=== PATIENT | female | born 1995 | race Caucasian/White ===

== ENCOUNTER 2019-03-14 19:50 | Inpatient (IN) | payer MEDICAID ==
[~2019-03-14] VITALS: Ht 170.2 cm; Wt 78.0 kg
[2019-03-14] MEDS ORDERED: RITO100T PO (21:43)
[2019-03-14 22:18] LABS: BASOPHILS % (AUTO) 0.7 % (0.0-2.0); EOSINOPHILS % (AUTO) 0.6 % (1.0-6.0); HEMATOCRIT 39.3 % (36-46); HEMOGLOBIN 12.9 g/dL (12.0-16.0); LYMPHOCYTES # (AUTO) 2.8 K/uL (1.0-4.8); LYMPHOCYTES % (AUTO) 43.6 % (22.0-44.0); MEAN CORPUSCULAR HEMOGLOBIN 31.3 pg (26.0-34.0); MEAN CORPUSCULAR HGB CONC 32.9 G/dL (31.0-37.0); MEAN CORPUSCULAR VOLUME 95 fL (80-100); MONOCYTES # (AUTO) 0.6 K/uL (0.1-1.0); MONOCYTES % (AUTO) 8.9 % (2.0-9.0); NEUTROPHILS % (AUTO) 46.2 % (40.0-70.0); PLATELET COUNT (AUTO) 232 K/uL (150-450); RED BLOOD CELL COUNT(AUTO) 4.14 MIL/uL (4.00-5.20)
[2019-03-14 22:41] LABS: ANION GAP 12 mmol/L (8-16); CALCIUM, TOTAL 9.3 mg/dL (8.8-10.5); CARBON DIOXIDE 23 mmol/L (22-29); CHLORIDE 106 mmol/L (98-107); CREATININE 0.82 mg/dL (0.60-1.30); GLOMERULAR FILTR. RATE CALC > 60 mL/min (>60); GLUCOSE,RANDOM 99 mg/dL (70-110); POTASSIUM 3.5 mmol/L (3.5-5.1); SODIUM SERUM 141 mmol/L (136-145); UREA NITROGEN, BLOOD 9 mg/dL (7-18)
[2019-03-14 22:54] LABS: ALANINE AMINOTRANSFERASE 28 U/L (12-78); ALKALINE PHOSPHATASE 91 U/L (46-116); ASPARTATE AMINOTRANSFERASE 25 U/L (15-37); BILIRUBIN,TOTAL 0.7 mg/dL (0.1-1.0); HCG,QUANTITATIVE < 1 mIU/mL (0-6)
[2019-03-14 23:02] LABS: AMPHET/METH SCREEN,URINE NEGATIVE (NEGATIVE); BARBITURATE SCREEN, URINE NEGATIVE (NEGATIVE); BENZODIAZEPINES SCREEN,URINE NEGATIVE (NEGATIVE); CANNABINOID SCREEN,URINE POSITIVE (NEGATIVE); COCAINE SCREEN,URINE NEGATIVE (NEGATIVE); METHADONE SCREEN, URINE NEGATIVE (NEGATIVE); OPIATE SCREEN,URINE NEGATIVE (NEGATIVE)
[2019-03-14 23:08] LABS: PHENCYCLIDINE SCREEN,URINE NEGATIVE (NEGATIVE)
[2019-03-14] MEDS ORDERED: LORazepam 1 MG TABLET PO ONE (23:30)
[2019-03-14 23:46] LABS: APPEARANCE,URINE CLOUDY (CLEAR); BILIRUBIN,URINE NEGATIVE (NEGATIVE); GLUCOSE, URINE (UA) NEGATIVE (NEGATIVE); KETONES,URINE NEGATIVE (NEGATIVE); LEUKOCYTE ESTERASE ,URINE MODERATE (NEGATIVE); NITRATE,URINE NEGATIVE (NEGATIVE); OCCULT BLOOD,URINE NEGATIVE (NEGATIVE); PROTEIN,URINE NEGATIVE (NEGATIVE); UROBILINOGEN,URINE 0.2 mg/dL (<=1.0)
[2019-03-14 23:59] LABS: BACTERIA,URINE Rare /HPF (None Seen); RBC,URINE 0-2 /HPF (0-2); SQUAMOUS EPITHELIAL CELL,UR Moderate /LPF (None Seen)
[2019-03-15] MEDS ORDERED: HALOPERIDOL 5 MG TABLET PO ONE (00:15)
[2019-03-15] MEDS ORDERED: DiphenhydrAMINE HCL 25 MG CAPSULE PO ONE (00:15)
[2019-03-15] MEDS ORDERED: ACETAMINOPHEN 325 MG TABLET PO PRN ×2 (11:15→12:00)
[2019-03-15] MEDS: OLANZapine 5 MG RAPDIS TABLET PO PRN (11:51)
[2019-03-15] MEDS: LORazepam 2 MG TABLET PO PRN ×2 (11:51→19:36)
[2019-03-15] MEDS ORDERED: MAGNESIUM HYDROXIDE SUSPENSION 30 ML UDCUP PO PRN (12:00)
[2019-03-15] MEDS ORDERED: LOPERAMIDE HCL 2 MG CAPSULE PO PRN (12:00)
[2019-03-15] MEDS ORDERED: TUBERCULIN, PURIFIED PROTEIN DERIVATIVE 5 TU/0.1 ML SYRINGE ID ONE (12:00)
[2019-03-15] MEDS ORDERED: MAG HYDROX/AL HYDROX/SIMETH ES 30 ML SUSPENSION UDCUP PO PRN (12:00)
[2019-03-15] MEDS ORDERED: PROMETHAZINE HCL 25 MG TABLET PO PRN (12:00)
[2019-03-15 14:15] VITALS: BP 108/69
[2019-03-15] MEDS: THIAMINE HCL 100 MG TABLET PO SCH (17:02)
[2019-03-15] MEDS ORDERED: PERMETHRIN 5% 60 GM CREAM TP ONE (17:15)
[2019-03-15] MEDS ORDERED: PERMETHRIN 1% 60 ML LOTION TP ONE (18:00)
[2019-03-15 18:37] VITALS: BP 121/78
[2019-03-15] MEDS: OLANZapine 10 MG RAPDIS TABLET PO SCH (20:33)
[2019-03-16] MEDS ORDERED: PNEUMOCOCCAL VACCINE POLYVALENT 0.5 ML VIAL [PPSV23] IM ONE (05:45)
[2019-03-16 06:44] VITALS: BP 119/76
[2019-03-16] MEDS: MULTIVITAMINS WITH MINERALS, THERAPEUTIC TABLET PO SCH (08:13)
[2019-03-16] MEDS: NALTREXONE HCL 50 MG TABLET PO SCH (08:13)
[2019-03-16] MEDS: THIAMINE HCL 100 MG TABLET PO SCH ×2 (08:13→16:35)
[2019-03-16] MEDS: LORazepam 2 MG TABLET PO PRN ×3 (08:13→17:14)
[2019-03-16] MEDS: FOLIC ACID 1 MG TABLET PO SCH (08:13)
[2019-03-16 08:21] VITALS: BP 123/80
[2019-03-16] MEDS: OLANZapine 5 MG RAPDIS TABLET PO PRN (08:37)
[2019-03-16 08:42] LABS: BASOPHILS % (AUTO) 0.4 % (0.0-2.0); HEMATOCRIT 39.5 % (36-46); HEMOGLOBIN 13.1 g/dL (12.0-16.0); LYMPHOCYTES # (AUTO) 2.3 K/uL (1.0-4.8); LYMPHOCYTES % (AUTO) 51.7 % (22.0-44.0); MEAN CORPUSCULAR HEMOGLOBIN 31.6 pg (26.0-34.0); MEAN CORPUSCULAR HGB CONC 33.1 G/dL (31.0-37.0); MEAN CORPUSCULAR VOLUME 96 fL (80-100); MONOCYTES # (AUTO) 0.5 K/uL (0.1-1.0); MONOCYTES % (AUTO) 12.3 % (2.0-9.0); NEUTROPHILS # (AUTO) 1.5 K/uL (1.8-7.7); NEUTROPHILS % (AUTO) 32.6 % (40.0-70.0); PLATELET COUNT (AUTO) 206 K/uL (150-450); RED BLOOD CELL COUNT(AUTO) 4.13 MIL/uL (4.00-5.20); RED CELL DISTRIBUTION WIDTH 13.8 % (11.5-14.5)
[2019-03-16 08:49] LABS: HEMOGLOBIN A1C 5.2 % (4.5-6.2)
[2019-03-16 09:12] LABS: ALANINE AMINOTRANSFERASE 24 U/L (12-78); ALBUMIN 3.3 g/dL (3.4-5.0); ALKALINE PHOSPHATASE 85 U/L (46-116); ANION GAP 7 mmol/L (8-16); ASPARTATE AMINOTRANSFERASE 15 U/L (15-37); BILIRUBIN,TOTAL 0.3 mg/dL (0.1-1.0); CARBON DIOXIDE 27 mmol/L (22-29); CHLORIDE 107 mmol/L (98-107); CHOLESTEROL 155 mg/dL (131-200); CREATININE 0.69 mg/dL (0.60-1.30); GLOMERULAR FILTR. RATE CALC > 60 mL/min (>60); GLUCOSE,RANDOM 84 mg/dL (70-110); HCG,QUANTITATIVE < 1 mIU/mL (0-6); HDL CHOLESTEROL 52 mg/dL (40-60); LDL CHOL (CALC.) 91 mg/dL (0-130); POTASSIUM 3.9 mmol/L (3.5-5.1); SODIUM SERUM 141 mmol/L (136-145); THYROID STIMULATING HORMONE 0.86 uIU/mL (0.36-3.74); TRIGLYCERIDES 58 mg/dL (15-150); UREA NITROGEN, BLOOD 9 mg/dL (7-18)
[2019-03-16] MEDS: HydrOXYzine PAMOATE 50 MG CAPSULE PO PRN (10:51)
[2019-03-16 16:09] VITALS: BP 120/78
[2019-03-16] MEDS: OLANZapine 10 MG RAPDIS TABLET PO SCH (20:43)
[2019-03-16] MEDS: ZOLPIDEM TARTRATE 10 MG TABLET PO PRN (21:06)
[2019-03-17 00:08] VITALS: BP 104/62
[2019-03-17] MEDS: LORazepam 2 MG TABLET PO PRN ×4 (02:27→20:39)
[2019-03-17] MEDS: IBUPROFEN 400 MG TABLET PO PRN (02:28)
[2019-03-17] MEDS: HydrOXYzine PAMOATE 50 MG CAPSULE PO PRN (02:49)
[2019-03-17] MEDS: OLANZapine 5 MG RAPDIS TABLET PO PRN ×3 (05:51→13:57)
[2019-03-17 08:30] VITALS: BP 125/85
[2019-03-17] MEDS: MULTIVITAMINS WITH MINERALS, THERAPEUTIC TABLET PO SCH (09:18)
[2019-03-17] MEDS: THIAMINE HCL 100 MG TABLET PO SCH ×2 (09:18→16:49)
[2019-03-17] MEDS: FOLIC ACID 1 MG TABLET PO SCH (09:18)
[2019-03-17] MEDS: FLUoxetine HCL 20 MG CAPSULE PO SCH (09:18)
[2019-03-17] MEDS: NALTREXONE HCL 50 MG TABLET PO SCH (09:31)
[2019-03-17 16:18] VITALS: BP 112/87
[2019-03-17] MEDS: OLANZapine 10 MG RAPDIS TABLET PO SCH (20:40)
[2019-03-17] MEDS: ZOLPIDEM TARTRATE 10 MG TABLET PO PRN (21:18)
[2019-03-18 04:01] VITALS: BP 112/70
[2019-03-18] MEDS: HydrOXYzine PAMOATE 50 MG CAPSULE PO PRN (04:50)
[2019-03-18] MEDS: OLANZapine 5 MG RAPDIS TABLET PO PRN ×2 (04:50→12:45)
[2019-03-18 08:17] VITALS: BP 105/75
[2019-03-18] MEDS: THIAMINE HCL 100 MG TABLET PO SCH ×2 (08:38→16:37)
[2019-03-18] MEDS: FOLIC ACID 1 MG TABLET PO SCH (08:38)
[2019-03-18] MEDS: FLUoxetine HCL 20 MG CAPSULE PO SCH (08:39)
[2019-03-18] MEDS: MULTIVITAMINS WITH MINERALS, THERAPEUTIC TABLET PO SCH (08:39)
[2019-03-18] MEDS: NALTREXONE HCL 50 MG TABLET PO SCH (08:39)
[2019-03-18] MEDS: LORazepam 2 MG TABLET PO PRN (09:28)
[2019-03-18] MEDS ORDERED: NALT50TA PO (11:59)
[2019-03-18] MEDS ORDERED: LORazepam 2 MG/ML VIAL ONE (12:58)
[2019-03-18] MEDS ORDERED: DiphenhydrAMINE HCL 50 MG/ML VIAL IM ONE ×2 (13:00→16:45)
[2019-03-18] MEDS ORDERED: HALOPERIDOL LACTATE 5 MG/ML VIAL IM ONE ×2 (13:00→16:45)
[2019-03-18] MEDS ORDERED: LORazepam 2 MG/ML VIAL IM ONE ×2 (13:00→16:45)
[2019-03-18 16:13] VITALS: BP 127/80
[2019-03-18 16:14] VITALS: BP 119/78
[2019-03-18] MEDS: OLANZapine 5 MG RAPDIS TABLET PO SCH (20:34)
[2019-03-18] MEDS: ZOLPIDEM TARTRATE 10 MG TABLET PO PRN (21:08)
[2019-03-19 04:41] VITALS: BP 100/70
[2019-03-19 08:18] VITALS: BP 120/67
[2019-03-19] MEDS: FLUoxetine HCL 20 MG CAPSULE PO SCH (08:31)
[2019-03-19] MEDS: THIAMINE HCL 100 MG TABLET PO SCH ×2 (08:31→16:43)
[2019-03-19] MEDS: FOLIC ACID 1 MG TABLET PO SCH (08:31)
[2019-03-19] MEDS: NALTREXONE HCL 50 MG TABLET PO SCH (08:31)
[2019-03-19] MEDS: MULTIVITAMINS WITH MINERALS, THERAPEUTIC TABLET PO SCH (08:31)
[2019-03-19] MEDS: LORazepam 2 MG TABLET PO PRN (09:24)
[2019-03-19] MEDS: HydrOXYzine PAMOATE 50 MG CAPSULE PO PRN (12:47)
[2019-03-19 16:30] VITALS: BP 115/76
[2019-03-19 18:06] LABS: HIV 1-2 SCREEN 4TH GEN W/RFLX Reactive (Non Reactive); HIV INTERPRETATION HIV-1 Positive; HIV-1 ANTIBODY(MULTISPOT) Positive (Negative); HIV-2 ANTIBODY(MULTISPOT) Negative (Negative)
[2019-03-19] MEDS: OLANZapine 5 MG RAPDIS TABLET PO SCH (20:48)
[2019-03-19] MEDS: ZOLPIDEM TARTRATE 10 MG TABLET PO PRN (21:16)
[2019-03-20] MEDS: LORazepam 2 MG TABLET PO PRN ×2 (00:58→10:19)
[2019-03-20] MEDS: IBUPROFEN 400 MG TABLET PO PRN (04:21)
[2019-03-20] MEDS: RITONAVIR 100 MG TABLET PO SCH ×2 (07:12→17:05)
[2019-03-20] MEDS: MULTIVITAMINS WITH MINERALS, THERAPEUTIC TABLET PO SCH (08:20)
[2019-03-20] MEDS: NALTREXONE HCL 50 MG TABLET PO SCH (08:20)
[2019-03-20] MEDS: NICOTINE 14 MG/24 HOUR PATCH TD PRN (08:20)
[2019-03-20] MEDS: FOLIC ACID 1 MG TABLET PO SCH (08:20)
[2019-03-20] MEDS: THIAMINE HCL 100 MG TABLET PO SCH ×2 (08:20→17:05)
[2019-03-20] MEDS: FLUoxetine HCL 20 MG CAPSULE PO SCH (08:23)
[2019-03-20 08:36] VITALS: BP 123/86
[2019-03-20 16:27] VITALS: BP 102/79
[2019-03-20] MEDS: OLANZapine 5 MG RAPDIS TABLET PO SCH (20:01)
[2019-03-20] MEDS: GuaiFENesin/D-METHORPHAN [SUGAR-FREE] 200-20MG/10 ML SYRUP UDCUP PO PRN (20:12)
[2019-03-21 00:08] VITALS: BP 104/70
[2019-03-21] MEDS: RITONAVIR 100 MG TABLET PO SCH ×2 (06:57→16:42)
[2019-03-21 08:29] VITALS: BP 120/77
[2019-03-21] MEDS: NALTREXONE HCL 50 MG TABLET PO SCH (08:48)
[2019-03-21] MEDS: MULTIVITAMINS WITH MINERALS, THERAPEUTIC TABLET PO SCH (08:49)
[2019-03-21] MEDS: FOLIC ACID 1 MG TABLET PO SCH (08:49)
[2019-03-21] MEDS: FLUoxetine HCL 20 MG CAPSULE PO SCH (08:49)
[2019-03-21] MEDS: THIAMINE HCL 100 MG TABLET PO SCH ×2 (08:49→17:07)
[2019-03-21] MEDS: GuaiFENesin/D-METHORPHAN [SUGAR-FREE] 200-20MG/10 ML SYRUP UDCUP PO PRN (09:37)
[2019-03-21 16:00] VITALS: BP 115/86
[2019-03-21] MEDS: LORazepam 2 MG TABLET PO PRN (17:07)
[2019-03-21] MEDS: DIVALPROEX SODIUM 500 MG ER TABLET PO SCH (20:17)
[2019-03-21] MEDS: OLANZapine 5 MG RAPDIS TABLET PO SCH (20:17)
[2019-03-22 06:13] VITALS: BP 112/78
[2019-03-22] MEDS: RITONAVIR 100 MG TABLET PO SCH ×2 (06:54→16:55)
[2019-03-22 08:16] VITALS: BP 112/73
[2019-03-22] MEDS: THIAMINE HCL 100 MG TABLET PO SCH ×2 (08:52→16:55)
[2019-03-22] MEDS: NALTREXONE HCL 50 MG TABLET PO SCH (08:52)
[2019-03-22] MEDS: FOLIC ACID 1 MG TABLET PO SCH (08:52)
[2019-03-22] MEDS: MULTIVITAMINS WITH MINERALS, THERAPEUTIC TABLET PO SCH (08:52)
[2019-03-22] MEDS: FLUoxetine HCL 20 MG CAPSULE PO SCH (08:53)
[2019-03-22] MEDS: LORazepam 2 MG TABLET PO PRN ×2 (08:59→16:56)
[2019-03-22 16:07] VITALS: BP 112/72
[2019-03-22] MEDS: DIVALPROEX SODIUM 500 MG ER TABLET PO SCH (21:18)
[2019-03-22] MEDS: OLANZapine 5 MG RAPDIS TABLET PO SCH (21:18)
[2019-03-22] MEDS: ZOLPIDEM TARTRATE 10 MG TABLET PO PRN (21:18)
[2019-03-23 06:12] VITALS: BP 118/70
[2019-03-23] MEDS: RITONAVIR 100 MG TABLET PO SCH ×2 (06:44→16:49)
[2019-03-23 08:22] VITALS: BP 101/60
[2019-03-23] MEDS: FOLIC ACID 1 MG TABLET PO SCH (08:38)
[2019-03-23] MEDS: FLUoxetine HCL 20 MG CAPSULE PO SCH (08:38)
[2019-03-23] MEDS: NALTREXONE HCL 50 MG TABLET PO SCH (08:38)
[2019-03-23] MEDS: MULTIVITAMINS WITH MINERALS, THERAPEUTIC TABLET PO SCH (08:38)
[2019-03-23] MEDS: LORazepam 2 MG TABLET PO PRN (08:38)
[2019-03-23] MEDS: THIAMINE HCL 100 MG TABLET PO SCH ×2 (08:38→16:49)
[2019-03-23 16:09] VITALS: BP 133/80
[2019-03-23] MEDS: DIVALPROEX SODIUM 500 MG ER TABLET PO SCH (20:28)
[2019-03-23] MEDS: OLANZapine 5 MG RAPDIS TABLET PO SCH (20:29)
[2019-03-23] MEDS: ZOLPIDEM TARTRATE 10 MG TABLET PO PRN (21:18)
[2019-03-24 05:40] VITALS: BP 119/72
[2019-03-24] MEDS: RITONAVIR 100 MG TABLET PO SCH ×2 (06:37→17:17)
[2019-03-24 08:26] VITALS: BP 104/69
[2019-03-24] MEDS: FLUoxetine HCL 20 MG CAPSULE PO SCH (08:32)
[2019-03-24] MEDS: THIAMINE HCL 100 MG TABLET PO SCH ×2 (08:32→17:17)
[2019-03-24] MEDS: NALTREXONE HCL 50 MG TABLET PO SCH (08:32)
[2019-03-24] MEDS: FOLIC ACID 1 MG TABLET PO SCH (08:32)
[2019-03-24] MEDS: MULTIVITAMINS WITH MINERALS, THERAPEUTIC TABLET PO SCH (08:32)
[2019-03-24 16:08] VITALS: BP 100/60
[2019-03-24] MEDS: LORazepam 2 MG TABLET PO PRN (17:18)
[2019-03-24] MEDS: NICOTINE 14 MG/24 HOUR PATCH TD PRN (17:49)
[2019-03-24] MEDS: DIVALPROEX SODIUM 500 MG ER TABLET PO SCH (20:03)
[2019-03-24] MEDS: OLANZapine 5 MG RAPDIS TABLET PO SCH (20:03)
[2019-03-24] MEDS: ZOLPIDEM TARTRATE 10 MG TABLET PO PRN (21:01)
[2019-03-25] MEDS: RITONAVIR 100 MG TABLET PO SCH ×2 (07:11→16:10)
[2019-03-25 08:18] VITALS: BP 100/51
[2019-03-25] MEDS: FLUoxetine HCL 20 MG CAPSULE PO SCH (09:06)
[2019-03-25] MEDS: THIAMINE HCL 100 MG TABLET PO SCH (09:06)
[2019-03-25] MEDS: FOLIC ACID 1 MG TABLET PO SCH (09:06)
[2019-03-25] MEDS: MULTIVITAMINS WITH MINERALS, THERAPEUTIC TABLET PO SCH (09:07)
[2019-03-25] MEDS: NALTREXONE HCL 50 MG TABLET PO SCH (09:08)
[2019-03-25 16:08] VITALS: BP 108/64
[2019-03-25] MEDS: LORazepam 2 MG TABLET PO PRN (17:56)
[2019-03-25] MEDS: DIVALPROEX SODIUM 500 MG ER TABLET PO SCH (20:11)
[2019-03-25] MEDS: OLANZapine 10 MG RAPDIS TABLET PO SCH (20:11)
[2019-03-25] MEDS: ZOLPIDEM TARTRATE 10 MG TABLET PO PRN (21:09)
[2019-03-26] MEDS: RITONAVIR 100 MG TABLET PO SCH ×2 (06:45→16:14)
[2019-03-26 07:12] VITALS: BP 100/61
[2019-03-26 08:13] VITALS: BP 100/53
[2019-03-26] MEDS: MULTIVITAMINS WITH MINERALS, THERAPEUTIC TABLET PO SCH (10:01)
[2019-03-26] MEDS: NALTREXONE HCL 50 MG TABLET PO SCH (10:01)
[2019-03-26] MEDS: FLUoxetine HCL 20 MG CAPSULE PO SCH (10:01)
[2019-03-26 16:01] VITALS: BP 102/57
[2019-03-26] MEDS: OLANZapine 10 MG RAPDIS TABLET PO SCH (20:06)
[2019-03-26] MEDS: DIVALPROEX SODIUM 500 MG ER TABLET PO SCH (20:07)
[2019-03-26] MEDS: ZOLPIDEM TARTRATE 10 MG TABLET PO PRN (20:20)
[2019-03-27 06:05] VITALS: BP 102/62
[2019-03-27] MEDS: RITONAVIR 100 MG TABLET PO SCH ×2 (06:44→16:41)
[2019-03-27] MEDS: NALTREXONE HCL 50 MG TABLET PO SCH (08:31)
[2019-03-27] MEDS: MULTIVITAMINS WITH MINERALS, THERAPEUTIC TABLET PO SCH (08:31)
[2019-03-27] MEDS: FLUoxetine HCL 20 MG CAPSULE PO SCH (08:31)
[2019-03-27 08:39] VITALS: BP 100/60
[2019-03-27 16:04] VITALS: BP 102/70
[2019-03-27] MEDS: DIVALPROEX SODIUM 500 MG ER TABLET PO SCH (20:18)
[2019-03-27] MEDS: OLANZapine 10 MG RAPDIS TABLET PO SCH (20:18)
[2019-03-27] MEDS: ZOLPIDEM TARTRATE 10 MG TABLET PO PRN (20:18)
[2019-03-28 00:21] VITALS: BP 111/67
[2019-03-28] MEDS: RITONAVIR 100 MG TABLET PO SCH ×2 (06:49→16:37)
[2019-03-28 08:19] VITALS: BP 100/53
[2019-03-28] MEDS: MULTIVITAMINS WITH MINERALS, THERAPEUTIC TABLET PO SCH (09:46)
[2019-03-28] MEDS: FLUoxetine HCL 20 MG CAPSULE PO SCH (09:46)
[2019-03-28] MEDS: NALTREXONE HCL 50 MG TABLET PO SCH (09:46)
[2019-03-28 16:15] VITALS: BP 104/64
[2019-03-28] MEDS: LORazepam 2 MG TABLET PO PRN (16:37)
[2019-03-28] MEDS ORDERED: OLAN10TA22 PO (17:37)
[2019-03-28] MEDS ORDERED: DIVA500T52 PO (17:37)
[2019-03-28] MEDS ORDERED: FLUO-191 PO (17:39)
[2019-03-28] MEDS: OLANZapine 10 MG RAPDIS TABLET PO SCH (20:43)
[2019-03-28] MEDS: DIVALPROEX SODIUM 500 MG ER TABLET PO SCH (20:44)
[2019-03-28] MEDS: ZOLPIDEM TARTRATE 10 MG TABLET PO PRN (20:44)
[2019-03-29 01:21] VITALS: BP 101/52
[2019-03-29] MEDS: RITONAVIR 100 MG TABLET PO SCH (06:45)
[2019-03-29] MEDS: NALTREXONE HCL 50 MG TABLET PO SCH (08:23)
[2019-03-29] MEDS: FLUoxetine HCL 20 MG CAPSULE PO SCH (08:23)
[2019-03-29] MEDS: MULTIVITAMINS WITH MINERALS, THERAPEUTIC TABLET PO SCH (08:23)
[2019-03-29 08:25] VITALS: BP 108/64
[2019-03-29] MEDS ORDERED: NALT50TA6 PO (11:33)
[2019-03-29] MEDS ORDERED: FLUO-191 PO (11:33)
[2019-03-29] MEDS ORDERED: DIVA500T52 PO (11:33)
[2019-03-29] MEDS ORDERED: OLAN10TA6 PO (11:33)
== END 2019-03-29 12:15 | disposition home or self-care (01) | DRG 750 ==
LOC: EMS 19:52 → B2X 03-15 11:55 → EDBD 03-15 11:55 → B2X 03-15 12:38 → B3A 03-25 17:34
PROVIDERS: ADMIT Psychiatry & Neurology Psychiatry; ATTEND Psychiatry & Neurology Psychiatry
DX: F25.9 Schizoaffective disorder, unspecified (principal); E88.09 Other disorders of plasma-protein metabolism, not elsewhere classified; F31.81 Bipolar II disorder; B85.0 Pediculosis due to Pediculus humanus capitis; F17.210 Nicotine dependence, cigarettes, uncomplicated; F41.0 Panic disorder [episodic paroxysmal anxiety]; F43.10 Post-traumatic stress disorder, unspecified; J98.8 Other specified respiratory disorders; F44.81 Dissociative identity disorder; G47.00 Insomnia, unspecified; Z65.3 Problems related to other legal circumstances; Z91.14 Patient's other noncompliance with medication regimen; Z91.19 Patient's noncompliance with other medical treatment and regimen; Z59.0 Homelessness; Z79.899 Other long term (current) drug therapy; Z91.42 Personal history of forced labor or sexual exploitation
CPT/HCPCS: 83036; 84443; 86592; 86701; 86702; 87086; 87389; G0480; J1200; J1630; J2060